=== PATIENT | female | born 1985 | race Caucasian/White ===

== ENCOUNTER 2016-07-25 14:02 | Observation (INO) | payer OTHER ==
[~2016-07-25] VITALS: Ht 157.5 cm; Wt 52.5 kg
[~2016-07-25 14:02] MED LIST: NEOSTIGMINE 3 MG/3 ML SYR IV ONE; ONDANSETRON HCL 4 MG/2 ML VIAL IV PUSH ONE; PROPOFOL 200 MG/20 ML AMP IV ONE
[2016-07-25 14:06] VITALS: BP 112/86; PULSE 73; RESP 16; TEMP 98.5; O2SAT 99
[2016-07-25] MEDS ORDERED: SODIUM CHLOR 0.9% 1000 ML INJ 1,000 ML IV SCH (14:18)
--- NOTE | 2016-07-25 14:28 | PD ---
HPI Chief Complaint: Abdominal Pain Time Seen by Provider: 14:11 Travel History International Travel<30 days: No Contact w/Intl Traveler<30days: No Traveled to known affect area: No History of Present Illness HPI The patient is a 31-year-old female who presents to the emergency department for nausea and generalized abdominal pain. The patient states she is currently on her menstrual cycle, describes her cycle as heavy with occasional blood clots. The patient states over the last 3-4 days she's had generalized abdominal pain that started in the lower pelvis and radiates to the back, now radiates to the epigastrium. She does complain of mild nausea but denies any vomiting. She states she had 3 normal bowel movements earlier today , denies any diarrhea. The patient denies any dysuria, frequency, urgency, or vaginal discharge. The patient denies any known history of STI's, gonorrhea, Chlamydia, Trichomonas, cervicitis, or PID. She does have a history of occasional discomfort with menstrual cycles, but states she's never had this much discomfort with a menstrual cycle in the past. The patient denies , states she has a previous tubal ligation. The patient's symptoms are moderate, possibly exacerbated by her current menstrual cycle, and there are no current alleviating factors. The patient does complain of mild anorexia , last meal was last night. PFSH Past Medical History Hx Anticoagulant Therapy: No Anemia: Yes Diminished Hearing: No Immunizations Current: No ?: Not Tubal Ligation: Yes Past Surgical History Section: Yes (X2) Gynecologic Surgery: Yes (2 C-SECTIONS) Social History Alcohol Use: No Tobacco Use: Yes (<1/2 PPD) Substance Use: No Allergies-Medications (Allergen,Severity, Reaction): Coded Allergies: Penicillin (Verified Allergy, Mild, HIVES, 07/25/16) Reported Meds & Prescriptions Reported Meds & Active Scripts Active No Active Prescriptions or Reported Medications Review of Systems Except as stated in HPI: all other systems reviewed are Neg General / Constitutional: No: Fever Cardiovascular: No: Chest Pain or Discomfort Respiratory: No: Shortness of Breath Gastrointestinal: Positive: Nausea, Abdominal Pain, No: Vomiting, Diarrhea, Constipation, Changes in Bowel Habits Genitourinary: Positive: Pelvic Pain, Dysmenorrhea, Vaginal Bleeding, No: Urgency, Frequency, Dysuria, Hematuria, Discharge Musculoskeletal: No: Myalgias Skin: No Rash Neurologic: No: Weakness Physical Exam Narrative GENERAL: Awake, alert, 31 year-old female who appears her stated age and is in no acute respiratory distress. SKIN: Warm and dry. HEAD: Atraumatic. Normocephalic. EYES: No injection or drainage. ENT: No nasal bleeding or discharge. Mucous membranes pink and moist. NECK: Trachea midline. No JVD. CARDIOVASCULAR: Regular rate and rhythm. No murmur appreciated. RESPIRATORY: No accessory muscle use. Clear to auscultation. Breath sounds equal bilaterally. GASTROINTESTINAL: Abdomen soft, positive McBurney's, mild guarding, no rigidity or rebound tenderness. Back: Bilateral CVA tenderness. MUSCULOSKELETAL: No obvious deformities. No clubbing. No cyanosis. No edema. NEUROLOGICAL: Awake and alert. No obvious cranial nerve deficits. Motor grossly within normal limits. Normal speech. PSYCHIATRIC: Appropriate mood and affect; insight and judgment normal. Data Data Last Documented VS Vital Signs Date Time Temp Pulse Resp B/P Pulse Ox O2 Delivery O2 Flow Rate FiO2 07/25/16 14:32 99 Room Air 07/25/16 14:06 98.5 73 16 112/86 Orders Complete Blood Count With Diff (07/25/16 14:18) Comprehensive Metabolic Panel (07/25/16 14:18) Lipase (07/25/16 14:18) Urinalysis - C+S If Indicated (07/25/16 14:18) Ct Abd/Pel W/O Iv Contrast (07/25/16 14:18) Iv Access Insert/Monitor (07/25/16 14:18) Ecg Monitoring (07/25/16 14:18) Oximetry (07/25/16 14:18) Morphine Inj (Morphine Inj) (07/25/16 14:30) Ondansetron Inj (Zofran Inj) (07/25/16 14:30) Sodium Chlor 0.9% 1000 Ml Inj (Ns 1000 M (07/25/16 14:18) Sodium Chloride 0.9% Flush (Ns Flush) (07/25/16 14:30) Ketorolac Inj (Toradol Inj) (07/25/16 14:30) Ed Urine Pregnancytest Poc (07/25/16 14:18) Ciprofloxacin 400 Mg Premix (Cipro 400 M (07/25/16 15:45) Metronidazole 500 Mg Inj (Flagyl 500 Mg (07/25/16 15:45) NPO (07/25/16 15:40) Ns + Kcl 20 Meq Inj (Ns + Kcl 20 Meq Inj (07/25/16 15:45) Morphine Inj (Morphine Inj) (07/25/16 15:45) Admit Order (Ed Use Only) (07/25/16 15:42) Vital Signs (Adult) Q4H (07/25/16 15:42) Diet Npo (07/25/16 Dinner) Activity Oob Ad Francy (07/25/16 15:42) ^ Saline Lock (07/25/16 15:42) Resp Oxygen Delbert C Titrat 1-4 L (07/25/16 ) ^ Notify Dr: Other (07/25/16 15:42) Ondansetron Inj (Zofran Inj) (07/25/16 15:45) Acetaminophen (Tylenol) (07/25/16 15:45) Acetaminophen Supp (Tylenol Supp) (07/25/16 15:45) Sodium Chloride 0.9% Flush (Ns Flush) (07/25/16 21:00) Sodium Chloride 0.9% Flush (Ns Flush) (07/25/16 15:45) Labs Laboratory Tests Test 07/25/16 07/25/16 14:21 14:25 Urine Collection Type VOIDED Urine Color YELLOW Urine Turbidity CLEAR Urine pH 5.5 Urine Specific [place] 1.004 Urine Protein NEG mg/dL Urine Glucose (UA) NEG mg/dL Urine Ketones NEG mg/dL Urine Occult Blood NEG Urine Nitrite NEG Urine Bilirubin NEG Urine Leukocyte Esterase NEG Urine Squamous Epithelial 0-5 /hpf Cells Microscopic Urinalysis Comment CULT NOT INDICATED White Blood Count 9.9 TH/MM3 Red Blood Count 4.16 MIL/MM3 Hemoglobin 12.3 GM/DL Hematocrit 38.1 % Mean Corpuscular Volume 91.6 FL Mean Corpuscular Hemoglobin 29.6 PG Mean Corpuscular Hemoglobin 32.3 % Concent Red Cell Distribution Width 12.1 % Platelet Count 210 TH/MM3 Mean Platelet Volume 8.6 FL Neutrophils (%) (Auto) 70.3 % Lymphocytes (%) (Auto) 23.1 % Monocytes (%) (Auto) 5.0 % Eosinophils (%) (Auto) 1.0 % Basophils (%) (Auto) 0.6 % Neutrophils # (Auto) 6.9 TH/MM3 Lymphocytes # (Auto) 2.3 TH/MM3 Monocytes # (Auto) 0.5 TH/MM3 Eosinophils # (Auto) 0.1 TH/MM3 Basophils # (Auto) 0.1 TH/MM3 CBC Comment DIFF FINAL Differential Comment Sodium Level 142 MEQ/L Potassium Level 3.7 MEQ/L Chloride Level 106 MEQ/L Carbon Dioxide Level 28.4 MEQ/L Anion Gap 8 MEQ/L Blood Urea Nitrogen 9 MG/DL Creatinine 0.65 MG/DL Estimat Glomerular Filtration 105 ML/MIN Rate Random Glucose 79 MG/DL Calcium Level 8.6 MG/DL Total Bilirubin 0.3 MG/DL Aspartate Amino Transf 12 U/L (AST/SGOT) Alanine Aminotransferase 12 U/L (ALT/SGPT) Alkaline Phosphatase 41 U/L Total Protein 6.7 GM/DL Albumin 3.6 GM/DL Lipase 141 U/L [facility] Medical Decision Making Medical Screen Exam Complete: Yes Emergency Medical Condition: Yes Medical Record Reviewed: Yes Interpretation(s) Last Impressions Abdomen/Pelvis CT 07/25/168 Signed Impressions: Service Date/Time: Monday, July 25, 2016 14:44 - CONCLUSION: 1. Dilated appendix within the midline of the pelvis with periappendiceal inflammatory changes suggestive of acute appendicitis. Clinical correlation is recommended. 2. Mild scoliosis of the lumbar spine. The findings were called immediately to Dr. Mcdonnell at 3:20 PM on 07/25/16. Alfredo Rogers MD Laboratory Tests Test 07/25/16 07/25/16 14:21 14:25 Urine Collection Type VOIDED Urine Color YELLOW Urine Turbidity CLEAR Urine pH 5.5 Urine Specific [place] 1.004 Urine Protein NEG mg/dL Urine Glucose (UA) NEG mg/dL Urine Ketones NEG mg/dL Urine Occult Blood NEG Urine Nitrite NEG Urine Bilirubin NEG Urine Leukocyte Esterase NEG Urine Squamous Epithelial 0-5 /hpf Cells Microscopic Urinalysis Comment CULT NOT INDICATED White Blood Count 9.9 TH/MM3 Red Blood Count 4.16 MIL/MM3 Hemoglobin 12.3 GM/DL Hematocrit 38.1 % Mean Corpuscular Volume 91.6 FL Mean Corpuscular Hemoglobin 29.6 PG Mean Corpuscular Hemoglobin 32.3 % Concent Red Cell Distribution Width 12.1 % Platelet Count 210 TH/MM3 Mean Platelet Volume 8.6 FL Neutrophils (%) (Auto) 70.3 % Lymphocytes (%) (Auto) 23.1 % Monocytes (%) (Auto) 5.0 % Eosinophils (%) (Auto) 1.0 % Basophils (%) (Auto) 0.6 % Neutrophils # (Auto) 6.9 TH/MM3 Lymphocytes # (Auto) 2.3 TH/MM3 Monocytes # (Auto) 0.5 TH/MM3 Eosinophils # (Auto) 0.1 TH/MM3 Basophils # (Auto) 0.1 TH/MM3 CBC Comment DIFF FINAL Differential Comment Sodium Level 142 MEQ/L Potassium Level 3.7 MEQ/L Chloride Level 106 MEQ/L Carbon Dioxide Level 28.4 MEQ/L Anion Gap 8 MEQ/L Blood Urea Nitrogen 9 MG/DL Creatinine 0.65 MG/DL Estimat Glomerular Filtration 105 ML/MIN Rate Random Glucose 79 MG/DL Calcium Level 8.6 MG/DL Total Bilirubin 0.3 MG/DL Aspartate Amino Transf 12 U/L (AST/SGOT) Alanine Aminotransferase 12 U/L (ALT/SGPT) Alkaline Phosphatase 41 U/L Total Protein 6.7 GM/DL Albumin 3.6 GM/DL Lipase 141 U/L Differential Diagnosis Differential diagnosis includes dysmenorrhea, menorrhagia, PID, cervicitis, appendicitis, ovarian cyst, pyelonephritis, endometriosis. Narrative Course IV was established, labs were drawn and sent, and the patient was placed on cardiac telemetry monitoring and continuous pulse oximetry monitoring. The patient was administered morphine, Toradol, Zofran, and IV fluids. Bedside UA test was obtained and UA was sent to lab. CT of the abdomen and pelvis was ordered to evaluate for appendicitis. Bedside UA test was negative. Patient's white count is normal, LFTs and UA are unremarkable. CT is positive for appendicitis, I discussed the patient with the on-call radiologist. Therefore, patient was administered Cipro and Flagyl. The on- call general surgeon, Dr. Dukes, was paged at 3:31 PM. The patient will be 23 hour observation for definitive management of acute uncomplicated appendicitis. Physician Communication Physician Communication The on-call general surgeon was paged at 3:31 PM. I discussed the patient Dr. Dukes who agrees with 0.3 hour observation. Diagnosis Primary Impression: Appendicitis Qualified Code: K35.80 - Acute appendicitis, unspecified acute appendicitis type Admitting Information Admitting Physician Requests: Observation Scripts No Active Prescriptions or Reported Meds Condition: Stable Mino Mcdonnell MD Jul 25, 2016 14:28
[2016-07-25] MEDS ORDERED: MORPHINE SULFATE 4 MG/ML INJ IV PUSH ONE ×2 (14:30→15:45)
[2016-07-25] MEDS ORDERED: KETOROLAC TROMETHAMINE 30 MG/ML (IVP) VIAL IVP ONE (14:30)
[2016-07-25] MEDS ORDERED: SODIUM CHLORIDE 0.9% FLUSH 5 ML FLUSH IVF PRN ×3 (14:30→20:45)
[2016-07-25] MEDS ORDERED: ONDANSETRON HCL 4 MG/2 ML VIAL IVP ONE (14:30)
[2016-07-25 14:32] VITALS: O2SAT 99
[2016-07-25 14:38] LABS: AUTOMATED NEUTROPHIL # 6.9 TH/MM3 (1.8-7.7); BASOPHIL # 0.1 TH/MM3 (0-0.2); BASOPHIL % 0.6 % (0.0-2.0); EOSINOPHIL # 0.1 TH/MM3 (0-0.4); HEMATOCRIT 38.1 % (35.0-46.0); HEMO FLAGS DIFF FINAL; LYMPH % 23.1 % (9.0-44.0); LYMPHOCYTE # 2.3 TH/MM3 (1.0-4.8); MEAN CELL VOLUME 91.6 FL (80.0-100.0); MEAN CORPUSCULAR HEMOGLOBIN 29.6 PG (27.0-34.0); MEAN CORPUSCULAR HGB CONC 32.3 % (32.0-36.0); NEUT % 70.3 % (16.0-70.0); PLATELET COUNT 210 TH/MM3 (150-450); RED BLOOD COUNT 4.16 MIL/MM3 (4.00-5.30); RED CELL DISTRIBUTION WIDTH 12.1 % (11.6-17.2); WHITE BLOOD COUNT 9.9 TH/MM3 (4.0-11.0)
[2016-07-25 14:39] LABS: BLOOD, URINE NEG (NEG); GLUCOSE,URINE NEG (NEG); KETONE, URINE NEG (NEG); NITRITE,URINE NEG (NEG); PH, URINE 5.5 (5.0-8.5)
[2016-07-25 14:48] LABS: CHLORIDE 106 MEQ/L (98-107); POTASSIUM 3.7 MEQ/L (3.5-5.1); SODIUM (NA) 142 MEQ/L (136-145)
[2016-07-25 14:51] LABS: ANION GAP 8 MEQ/L (5-15); BICARBONATE 28.4 MEQ/L (21.0-32.0); BLOOD UREA NITROGEN 9 MG/DL (7-18)
[2016-07-25 14:54] LABS: ALT (GPT) 12 U/L (10-53); AST (GOT) 12 U/L (15-37); GLOMERULAR FILTRATION RATE 105 ML/MIN (>89)
[2016-07-25 14:56] LABS: TOTAL BILIRUBIN ADULT 0.3 MG/DL (0.2-1.0)
[2016-07-25 14:57] LABS: ALKALINE PHOSPHATASE 41 U/L (45-117)
[2016-07-25 15:17] LABS: COMMENT (UR) CULT NOT INDICATED; CULTURE IF INDICATED CULT NOT INDICATED; METHOD OF COLLECTION VOIDED; SQUAMOUS EPITHELIAL CELL URINE 0-5 /hpf (0-5); URINE COLOR YELLOW (YELLW/STRAW)
--- NOTE | 2016-07-25 15:22 | RADHPO ---
EXAM DATE/TIME: 07/25/2016 14:44 [facility] COMPARISON: No previous studies available for comparison. INDICATIONS : Diffuse abdominal pain and nausea x 3 days. ORAL CONTRAST: No oral contrast ingested. RADIATION DOSE: 5.10 CTDIvol (mGy) MEDICAL HISTORY : None SURGICAL HISTORY : section. Tubal ligation. ENCOUNTER: Initial ACUITY: 3 days PAIN SCALE: 10/10 LOCATION: Diffuse abdomen. TECHNIQUE: Volumetric scanning of the abdomen and pelvis was performed. Using automated exposure control and ad justment of the mA and/or kV according to patient size, radiation dose was kept as low as reasonably achievable to obtain optimal diagnostic quality images. FINDINGS: LOWER LUNGS: The visualized lower lungs are clear. LIVER: Homogeneous density without lesion. There is no dilation of the biliary tree. No calcified gallston es. SPLEEN: Normal size without lesion. PANCREAS: Within normal limits. KIDNEYS: Normal in size and shape. There is no mass, stone, or hydronephrosis. ADRENAL GLANDS: Within normal limits. VASCULAR: There is no aortic aneurysm. BOWEL/MESENTERY: There is evidence of a dilated appendix within the midline of the pelvis with periappendiceal inflamm atory changes suggestive of acute appendicitis. Clinical correlation is recommended. ABDOMINAL WALL: Within normal limits. RETROPERITONEUM: There is no lymphadenopathy. BLADDER: No wall thickening or mass. REPRODUCTIVE: Within normal limits. INGUINAL: There is no lymphadenopathy or hernia. MUSCULOSKELETAL: Mild scoliosis of the lumbar spine is noted. CONCLUSION: 1. Dilated appendix within the midline of the pelvis with periappendiceal inflammatory changes sugges tive of acute appendicitis. Clinical correlation is recommended. 2. Mild scoliosis of the lumbar spine. The findings were called immediately to Dr. Mcdonnell at 3:20 PM on 07/25/16. Alfredo Rogers MD on July 25, 2016 at 15:12 Board Certified Radiologist. This report was verified electronically.
[2016-07-25] MEDS ORDERED: ACETAMINOPHEN 650 MG SUPP PR PRN (15:45)
[2016-07-25] MEDS ORDERED: ONDANSETRON HCL 4 MG/2 ML VIAL IV PRN ×2 (15:45→20:45)
[2016-07-25] MEDS ORDERED: CIPROFLOXACIN 400 MG PREMIX 200 ML IV ONE (15:45)
[2016-07-25] MEDS ORDERED: ACETAMINOPHEN 325 MG TAB PO PRN ×2 (15:45→20:45)
[2016-07-25] MEDS ORDERED: metroNIDAZOLE 500 MG INJ 100 ML IV ONE (15:45)
[2016-07-25 17:08] VITALS: BP 109/64; PULSE 62; RESP 18; O2SAT 98
[2016-07-25] MEDS: NS + KCL 20 MEQ INJ 1,000 ML IV SCH ×2 (17:47→23:45)
[2016-07-25 18:08] VITALS: O2SAT 98
[2016-07-25] MEDS ORDERED: ACETAMINOPHEN 1000 MG/100 ML VIAL IV ONE ×3 (18:41→19:01)
[2016-07-25] MEDS ORDERED: fentaNYL CITRATE 250 MCG/5 ML AMP ONE ×2 (18:42→20:59)
[2016-07-25] MEDS ORDERED: FAMOTIDINE 20 MG/2 ML VIAL ONE (18:42)
[2016-07-25] MEDS ORDERED: DEXAMETHASONE SOD PHOS 4 MG/ML VIAL ONE (18:42)
[2016-07-25] MEDS ORDERED: MIDAZOLAM HCL 2 MG/2 ML VIAL ONE (18:42)
[2016-07-25] MEDS ORDERED: MIDAZOLAM HCL 2 MG/2 ML VIAL IV ONE (19:00)
[2016-07-25] MEDS ORDERED: FAMOTIDINE 20 MG/2 ML VIAL IV ONE (19:00)
[2016-07-25] MEDS ORDERED: DEXAMETHASONE SOD PHOS 4 MG/ML VIAL IV ONE (19:00)
[2016-07-25] MEDS ORDERED: BUPIVACAINE/EPINEPHRINE 0.25% PF 30 ML VIAL INFIL ONE (19:56)
[2016-07-25] MEDS ORDERED: MORPHINE SULFATE 4 MG/ML INJ IV PRN (20:45)
[2016-07-25] MEDS ORDERED: NALOXONE HCL 0.4 MG/ML AMP IV PRN (20:45)
[2016-07-25] MEDS ORDERED: IBUPROFEN 400 MG TAB PO PRN (20:45)
[2016-07-25] MEDS ORDERED: ACETAMINOPHEN/HYDROcodone 325 MG/5 MG TAB PO PRN (20:45)
[2016-07-25] MEDS ORDERED: BENZOCAINE 20% ORAL SPR 60 ML CAN MT PRN (20:45)
[2016-07-25] MEDS ORDERED: MAGNESIUM HYDROXIDE SUSP 30 ML CUP PO PRN (20:45)
[2016-07-25] MEDS ORDERED: LORazepam 2 MG/ML VIAL IVP PRN (20:45)
[2016-07-25] MEDS ORDERED: KETOROLAC TROMETHAMINE 30 MG/ML (IVP) VIAL IVP PRN (20:45)
[2016-07-25] MEDS ORDERED: Post-op Orders (for Pharmacy) MISC XX ONE (20:45)
[2016-07-25] MEDS ORDERED: diphenhydrAMINE HCL 50 MG/ML VIAL IV PRN (20:45)
--- NOTE | 2016-07-25 20:54 | HHI.PR ---
Immediate Post Op Note Procedure Date: Jul 25, 2016 Pre Op Diagnosis: (1) Appendicitis Post Op Diagnosis: (1) Appendicitis Surgeon: Hood Dukes Turn Sewer(s): none Procedure: laparoscopic appendectomy Findings: acute uncomplicated appendicitis Complications: none Specimen(s) removed: appendix Estimated blood loss: 10ml Anesthesia: General, Local Drains: None Patient to: PACU Patient Condition: Good Hood Dukes MD Jul 25, 2016 20:54
[2016-07-25] MEDS: LACTATED RINGER'S 1000 ML INJ 1,000 ML IV SCH (21:00)
[2016-07-25] MEDS ORDERED: *morphine SULFATE 8 MG/ML PERIprocedure ONLY ONE (21:00)
[2016-07-25] MEDS ORDERED: SODIUM CHLORIDE 0.9% FLUSH 5 ML FLUSH IVF SCH (21:00)
[2016-07-25] MEDS: SODIUM CHLORIDE 0.9% FLUSH 5 ML FLUSH IVF SCH (21:00)
--- NOTE | 2016-07-25 21:13 | MH ---
cc: CECILIALUDINANU SCHROEDER DATE OF ADMISSION: 07/25/2016 CHIEF COMPLAINT: Acute appendicitis. HISTORY OF PRESENT ILLNESS: The patient is a 31-year-old female who presented to the [facility] with approximately four days of vague periumbilical abdominal pain that relocated to her suprapubic and right lower quadrant. The patient stated the pain was pretty mild until the last 24 hours when it became significantly worse. The patient never had pain like this before and without radiation and pain is made worse with worse with walking and with pressing in her over her scar area. The patient denies any nausea, vomiting, diarrhea, constipation, fevers, chills, night sweats or any other complaints. The patient underwent workup to include CT scan of the abdomen and pelvis which just showed dilated appendix within the midline of the pelvis with periappendiceal inflammatory changes suggestive of acute appendicitis. The patient was transferred to [facility] from [facility] for surgical evaluation and likely appendectomy. REVIEW OF SYSTEMS: A twelve-point review of systems was gone over with the patient and is negative except for the pertinent positives mentioned above in the history of present illness. PAST MEDICAL HISTORY: None PAST SURGICAL HISTORY: 1. section x2. 2. Tubal ligation. SOCIAL HISTORY: The patient uses tobacco and smokes cigarettes. Denies alcohol or illicit drug use. ALLERGIES: PENICILLIN. MEDICATIONS: None. FAMILY HISTORY: No history of GI malignancy or appendiceal problems or appendiceal malignancy. PHYSICAL EXAMINATION: VITAL SIGNS: Temperature 98.2 degrees, pulse 71, respiratory rate 20, blood pressure 102/80, 02 saturation 97% on room air. GENERAL: The patient is a thin female in no acute distress. HEAD, EYES, EARS, NOSE, THROAT: Head is normocephalic and atraumatic. Pupils are round and reactive to light. The sclerae are nonicteric. The mucous membranes are moist. NECK: The neck is supple. No jugular venous distention. LUNGS: The lungs are clear to auscultation bilaterally. Nonlabored breathing pattern. HEART: Regular rate and rhythm. No murmurs. ABDOMEN: Abdomen soft and nondistended. Normal bowel sounds. The patient has tenderness over her suprapubic and right lower quadrant more vague with now point tenderness. Negative leg raise test. Negative Pal's sign. Previous scar without hernia, well-healed. EXTREMITIES: No cyanosis, clubbing or edema. BACK: No costovertebral angle tenderness. NEUROLOGIC: The patient is awake, alert and oriented times four moving all extremities nonfocally, Cranial nerves II through XII are grossly intact. LABORATORY VALUES: White blood cell count is 9.9, hemoglobin 12.3, platelet count 210,000. Urinalysis is negative for abnormality. ASSESSMENT AND PLAN: The patient is a 31-year-old female with four days of abdominal pain likely acute appendicitis on CT scan. I discussed with the patient my assessment, which is that the patient most likely has acute appendicitis and I did recommend treatment with laparoscopic appendectomy. The risks, benefits, and alternatives to laparoscopic appendectomy were explained to the patient in detail prior to the procedure and the patient agreed to undergo the procedure. All questions were answered to her satisfaction. We will proceed to the operating room based on the operating room availability at [facility] now that the patient has been transferred from [facility]. MD PARIS Bustos/KRISTYN /8:45 PM /9:06 PM
[2016-07-25] MEDS: metroNIDAZOLE 500 MG INJ 100 ML IV SCH (22:15)
[2016-07-25 23:00] VITALS: BP 122/80; PULSE 78; RESP 20; TEMP 97.8; O2SAT 96
[2016-07-26 04:00] VITALS: BP 120/72; PULSE 80; RESP 22; TEMP 98.4; O2SAT 98
[2016-07-26 04:19] VITALS: O2SAT 98
[2016-07-26] MEDS: LACTATED RINGER'S 1000 ML INJ 1,000 ML IV SCH (04:28)
[2016-07-26] MEDS: metroNIDAZOLE 500 MG INJ 100 ML IV SCH (04:28)
[2016-07-26] MEDS: ACETAMINOPHEN/HYDROcodone 325 MG/7.5 MG TAB PO PRN ×3 (04:28→12:13)
[2016-07-26 08:00] VITALS: BP 100/59; PULSE 57; RESP 12; TEMP 97.6; O2SAT 100
[2016-07-26 08:12] VITALS: O2SAT 100
--- NOTE | 2016-07-26 08:14 | HHI.PR ---
Subjective Subjective Notes pain ok Objective Vitals/I&O Vital Signs Date Time Temp Pulse Resp B/P Pulse Ox O2 Delivery O2 Flow Rate FiO2 07/26/16 04:19 98 21 07/26/16 04:00 98.4 80 22 120/72 07/25/16 21:15 Room Air Labs Laboratory Tests Test 07/25/16 07/25/16 14:21 14:25 Urine Collection Type VOIDED Urine Color YELLOW Urine Turbidity CLEAR Urine pH 5.5 Urine Specific [place] 1.004 Urine Protein NEG Urine Glucose (UA) NEG Urine Ketones NEG Urine Occult Blood NEG Urine Nitrite NEG Urine Bilirubin NEG Urine Leukocyte Esterase NEG Urine Squamous Epithelial 0-5 Cells Microscopic Urinalysis Comment CULT NOT INDICATED White Blood Count 9.9 Red Blood Count 4.16 Hemoglobin 12.3 Hematocrit 38.1 Mean Corpuscular Volume 91.6 Mean Corpuscular Hemoglobin 29.6 Mean Corpuscular Hemoglobin 32.3 Concent Red Cell Distribution Width 12.1 Platelet Count 210 Mean Platelet Volume 8.6 Neutrophils (%) (Auto) 70.3 Lymphocytes (%) (Auto) 23.1 Monocytes (%) (Auto) 5.0 Eosinophils (%) (Auto) 1.0 Basophils (%) (Auto) 0.6 Neutrophils # (Auto) 6.9 Lymphocytes # (Auto) 2.3 Monocytes # (Auto) 0.5 Eosinophils # (Auto) 0.1 Basophils # (Auto) 0.1 CBC Comment DIFF FINAL Differential Comment Sodium Level 142 Potassium Level 3.7 Chloride Level 106 Carbon Dioxide Level 28.4 Anion Gap 8 Blood Urea Nitrogen 9 Creatinine 0.65 Estimat Glomerular Filtration 105 Rate Random Glucose 79 Calcium Level 8.6 Total Bilirubin 0.3 Aspartate Amino Transf 12 (AST/SGOT) Alanine Aminotransferase 12 (ALT/SGPT) Alkaline Phosphatase 41 Total Protein 6.7 Albumin 3.6 Lipase 141 Cardiovascular: Regular Lungs: Clear Abdomen: Non-distended, Post-op tenderness Extremities: No edema A/P Assessment and Plan 31yo female s/p lap appy for acute appendicitis, stable pain controlled if tolerates PO can DC home today Hood Dukes MD Jul 26, 2016 08:14
[2016-07-26] MEDS: SODIUM CHLORIDE 0.9% FLUSH 5 ML FLUSH IVF SCH (08:21)
[2016-07-26 12:00] VITALS: BP 90/54; PULSE 54; RESP 12; TEMP 98.7; O2SAT 100
[2016-07-26 13:13] VITALS: RESP 18
--- NOTE | 2016-07-28 15:16 | MP ---
cc: ANU RENDON DATE OF SURGERY: 07/25/2016 PREOPERATIVE DIAGNOSIS Acute appendicitis. POSTOPERATIVE DIAGNOSIS Acute uncomplicated appendicitis. PROCEDURE Laparoscopic appendectomy. ATTENDING SURGEON Ernst ANESTHESIA General. FINDINGS Acute suppurative uncomplicated appendix, retroperitoneal under the mesentery of the ileocolic vessels. COMPLICATIONS None. ESTIMATED BLOOD LOSS 10 cc. INDICATION FOR PROCEDURE The patient is a 31-year-old female with four days of right lower quadrant abdominal pain and CT scan showing dilated appendix with inflammatory changes around the appendix. The risks, benefits and alternatives of the procedure were explained to the patient prior to the procedure. DETAILS OF PROCEDURE After informed consent was obtained the patient was taken to the operating room, placed in a supine position and placed under general endotracheal anesthesia. The patient's abdomen was prepped and draped in a sterile fashion. A timeout was performed. We entered the abdomen through a Hai direct entry cutdown technique with a curvilinear incision below the umbilicus. We directly placed a 10 mm trocar into the abdomen and insufflated the abdomen. We placed a 5 mm 30-degree camera and surveyed the abdomen. There was no evidence of any complication from our entry. We were then able to place a 5 mm port in the left lower quadrant and a 5 mm port in the suprapubic position under direct visualization of the laparoscope. We took down a small amount of adhesions likely related to the patient's with the scissors and cautery. We got excellent hemostasis with the cautery as there was a small amount of bleeding from the omental attachment to the abdominal wall. This was minimal adhesiolysis. We then turned our attention towards the appendectomy. We traced the taenia of the right colon down to where it coalesced down to the base of the appendix. This was adjacent to the terminal ileum which was identified easily. The appendix at the base was relatively normal anatomy; however, the tip was curved back down and was somewhat retroperitoneal. We were able to easily identify the base and made a window at the base with a [place] dissector. The base of the appendix was divided with a white load on the [facility] GI laparoscopic stapler. We then continued dissection with blunt dissection as well as electrocautery to mobilize the remainder of the body and tip of the appendix from the retroperitoneum. This was brought up into the field and just on thin mesentery ensuring not to injure any retroperitoneal structures. We were then able to take two sanchez loads on the laparoscopic [facility] GI stapler and divide the appendiceal mesentery without difficulty. The appendix was removed from the abdomen with an EndoCatch bag through the periumbilical Hai port site. It was passed off for permanent processing. We were then able to use the suction foreclosure paralegal to suction out the small areas of blood clots and some inflammatory fluid in the pelvis. There was no other intra-abdominal pathology and all our suctioning was clear. We then removed the ports under direct visualization with the laparoscope and expressed pneumoperitoneum. We then were able to close the periumbilical incision with a [id number] 0 Vicryl suture. We closed the skin with 4-0 Monocryl and Dermabond. The patient was discontinued from anesthesia, taken to the PACU in stable condition. The patient tolerated the procedure well. No apparent complications. All counts were correct. I was present and scrubbed for the entire procedure. Anu Rendon MD AWG/BT /8:50 PM /3:03 PM
== END 2016-07-26 13:51 | disposition home or self-care (01) ==
LOC: PHED 14:02 → PHEDA 15:44 → HPAC 18:32 → N07B 21:30
PROVIDERS: ADMIT Surgery; ATTEND Surgery
DX: K35.80 Unspecified acute appendicitis (principal); M41.9 Scoliosis, unspecified; F17.210 Nicotine dependence, cigarettes, uncomplicated; Z98.51 Tubal ligation status
CPT/HCPCS: 00840; 44970; 74176; 80053; 81001; 83690; 84703; 85025; 88304; 94150; 96361; 96374; 96375; 99285; G0378; J0131; J0744; J1100; J1885; J2060; J2270; J2405; J2710; J3010; J3480; J7030; J7120; J2250